=== PATIENT | female | born 1935 | race Caucasian/White ===

== ENCOUNTER → 2017-01-12 | Outpatient (CLI) | payer BC ==
[~2017-01-12] MED LIST: ALPR-411 PO; AMLO-110 PO; ATOR-22 PO; AZPOPS OPB; CLTP PO; CRG40 PO; DYZ PO; FSM10 PO; GLC500 PO; LISI-461 PO; MELO15TA3 PO; MULT-506 PO; NRN600 PO
--- NOTE | 2017-01-13 13:56 | MAMMOGRAPHY REPORT ---
UNILATERAL RIGHT DIGITAL SCREENING MAMMOGRAM TOMOSYNTHESIS WITH CAD: 01/12/2017 CLINICAL HISTORY: Asymptomatic. Personal history of breast cancer. TECHNIQUE: Right breast tomosynthesis in addition to standard 2D mammography was performed. Current selam hylton was also evaluated with a Computer Aided Detection (CAD) system. COMPARISON: Comparison is made to exams dated: 12/19/2015 mammogram, 12/12/2014 mammogram, 11/30/2013 m ammogram, 11/28/2012 mammogram, 11/23/2011 mammogram, and 11/20/2010 mammogram - [facility] er. BREAST COMPOSITION: The tissue of the right breast is almost entirely fatty. FINDINGS: There is possible architectural distortion in the posterior superior right breast, project ing over the pectoralis muscle on the MLO view (tomosynthesis slice 15/56). This is not definitely i dentified on the CC view. Although it could represent overlapping fibrolinear markings, additional s pot compression tomosynthesis views and possibly ultrasound are recommended. There are 9 appearing coarse calcifications scattered in the right breast. No other suspicious mass, architectural distortion or cluster of microcalcifications is seen. IMPRESSION: ACR BI-RADS CATEGORY 0: INCOMPLETE EVALUATION: NEED ADDITIONAL IMAGING EVALUATION The possible architectural distortion in the superior, posterior right breast on the MLO view needs a dditional evaluation. The patient will be called to schedule an appointment. Approximately 10% of breast cancers are not detected with mammography. A negative mammographic report should not delay biopsy if a clinically suggestive mass is present. Mariama Damon M.D. ay/:01/12/2017 15:38:55 On Site Coordinator: Isabella BOSE(Irvin)(Leana)([id number]), [facility] letter sent: Addl Imaging 0 BI-RADS Code: ACR BI-RADS Category 0: Incomplete Evaluation: Need Additional Imaging Evaluation
== END | disposition home or self-care (01) ==
LOC: C.MAMM 14:13
PROVIDERS: ATTEND Nurse Practitioner Family
DX: Z12.31 Encounter for screening mammogram for malignant neoplasm of breast (principal); Z85.3 Personal history of malignant neoplasm of breast

== ENCOUNTER → 2017-02-07 | Outpatient (CLI) | payer BC ==
--- NOTE | 2017-02-07 13:09 | MAMMOGRAPHY REPORT ---
UNILATERAL RIGHT DIGITAL DIAGNOSTIC MAMMOGRAM TOMOSYNTHESIS: 02/07/2017 CLINICAL HISTORY: 81-year-old woman with a personal history of left breast cancer status post mastect filippo called back from screening mammography for possible architectural distortion in the superior post erior right breast, only seen on the MLO view. TECHNIQUE: 2 spot compression MLO 2-D and tomosynthesis views of the right breast were obtained. COMPARISON: Comparison is made to exams dated: 01/12/2017 mammogram, 12/19/2015 mammogram, 12/12/2014 m ammogram, 11/30/2013 mammogram, 11/28/2012 mammogram, and 11/23/2011 mammogram - [facility] ter. BREAST COMPOSITION: The tissue of the right breast is almost entirely fatty. FINDINGS: There is complete effacement of the possible architectural distortion in the superior poste rior right breast on both spot compression MLO views and corresponding tomosynthesis images. There i s no evidence of a suspicious cluster of microcalcifications, obvious mass or developing asymmetry. The possible distortion most likely represented normal overlapping fibrolinear markings and is consid ered benign given the complete effacement. IMPRESSION: ACR BI-RADS CATEGORY 2: BENIGN There is complete effacement of the questionable architectural distortion in the superior posterior r ight breast with supplemental mammographic views and tomosynthesis images. There is no mammographic evidence of malignancy in the right breast. Return to annual mammogram screening schedule is recommen ded. The patient has been verbally notified of the results. Approximately 10% of breast cancers are not detected with mammography. A negative mammographic report should not delay biopsy if a clinically suggestive mass is present. Mariama Damon M.D. ay/:02/07/2017 11:08:21 Door Serviceman: Charmaine BOSE(Irvin)(Leana), [facility] letter sent: Normal 1/2 BI-RADS Code: ACR BI-RADS Category 2: Benign
== END | disposition home or self-care (01) ==
LOC: C.MAMM 10:28
PROVIDERS: ATTEND Nurse Practitioner Family
DX: R92.2 Inconclusive mammogram (principal); Z85.3 Personal history of malignant neoplasm of breast; Z90.12 Acquired absence of left breast and nipple

== ENCOUNTER → 2017-05-25 | Day surgery (SDC) | payer BC ==
[2017-05-02 12:48] VITALS: Ht 152.4 cm; Wt 59.1 kg
[~2017-05-25] VITALS: Ht 152.4 cm; Wt 59.1 kg
[~2017-05-25] MED LIST changes: -ALPR-411 PO; +ALPR0.5T PO; -AMLO-110 PO; +AMLO5TAB3 PO; -ATOR-22 PO; -AZPOPS OPB; -CLTP PO; -CRG40 PO; +CYAN100020 PO; -DYZ PO; -FSM10 PO; +GABA600T PO; -GLC500 PO; +LIDOCAINE HCL 1% MPF 5 ML VIAL ONE; -LISI-461 PO; +LISI40TA PO; -MELO15TA3 PO; +METO25TA3 PO; -MULT-506 PO; -NRN600 PO; +SITA25TA PO; +SODIUM CHLORIDE 0.9% INJ 10 ML VIAL ONE; +TRAM-10 PO; +TYLOTC500 PO
--- NOTE | 2017-05-25 13:37 | History & Physical Bridge - SC ---
H&P Re-Evaluation Bridge Note: I have examined the patient, reviewed the History & Physical and in the interval since the performance of the History & Physical I have noted the following changes of clinical significance: No changes noted
[2017-05-25 14:02] VITALS: TEMP 37.1
--- NOTE | 2017-05-25 14:06 | Discharge Instructions ---
Discharge Instructions Date of Service May 25, 2017. Visit Reason for Visit: Lumbar Radiculopathy Discharge Discharge Diagnosis / Problem: right leg pain Discharge Goals Goal(s): Decrease discomfort, Improve function Activity Recommendations Activity Limitations: resume your previous activity Anesthesia . Post Anesthesia Instructions: If you have had General Anesthesia or IV Sedation: * Do not drive today. * Resume driving when surgeon permits. * Do not make important decisions or sign legal documents today. * Call surgeon for: 1. Temperature elevations greater than 101 degrees F. 2. Uncontrollable pain. 3. Excessive bleeding. 4. Persistent nausea and vomiting. 5. Medication intolerance (nausea, vomiting or rash). * For nausea and vomiting use only clear liquids such as: tea, soda, bouillon until nausea subsides, then gradually increase diet as tolerated. * If you have any concerns or questions, call your surgeon's office. If physician is unavailable and it is an emergency, call 911 or go to the nearest emergency room. . Diet Recommendations Recommended Home Diet: resume previous diet Procedures Procedures Performed: Caudal Epidural Steroid Injection Pending Studies Studies pending at discharge: no Medical Emergencies . Who to Call and When: Medical Emergencies: If at any time you feel your situation is an emergency, please call 911 immediately. . Non-Emergent Contact Non-Emergency issues call your: Specialist . . "Provider Documentation" section prepared by Donavan Clark. .
[2017-05-25 14:16] VITALS: BP 157/84; PULSE 72; O2SAT 96
--- NOTE | 2017-05-25 14:18 | OPERATIVE REPORT ---
DATE OF OPERATION: 05/25/2017 PREOPERATIVE DIAGNOSIS: Post-laminectomy syndrome with persistent right L5 radiculopathy. POSTOPERATIVE DIAGNOSIS: Same. PROCEDURE: Caudal epidural steroid injection under fluoroscopic guidance. INDICATIONS: The patient is an 81-year-old white female who has pain that at times is debilitating following a right L5 dermatomal distribution. She has had laminectomy previously and still continues to have pain, that has not responded to conservative measures, including gabapentin trials. She presents today for lumbar epidural steroid injection via a caudal approach given her prior laminectomy to provide her with relief of her ongoing radiculopathy. PHYSICAL EXAMINATION: Pleasant female seated comfortably. She has a well-healed central incision, and she has sciatic sensitivity. No focal weakness. Negative seated straight leg raises. CONSENT: Verbal and written consent was obtained from patient. Risks and benefits were reviewed. Risks include but are not limited to epidural abscess, epidural hematoma, dural puncture. The patient wishes to proceed. DESCRIPTION OF PROCEDURE: The patient was taken back to the special procedures room of the [facility] where she was maintained in prone position. Backside was cleansed with Betadine x3 and dry sterile dressing was applied. Fluoroscope was used to identify the sacral hiatus and the overlying skin was anesthetized with 4 mL of lidocaine 1%. A 25 gauge 3.5 inch spinal needle was then used in a lateral view to enter the canal. It was advanced in the canal under lateral fashion and then after negative aspiration was injected with 40 mg of Depo-Medrol and 4 mL of preservative free sodium chloride. Injection was well tolerated. DISPOSITION: 1. The patient is taken out into the discharge recovery area where she will be discharged home once discharge criteria have been met. 2. Follow up in the [facility] office in 4 weeks' time. I attest to the content of the Intraoperative Record and any orders documented therein. Any exception s are noted below.
== END | disposition home or self-care (01) ==
LOC: X.SURG 12:47
PROVIDERS: ATTEND Physical Medicine & Rehabilitation
DX: M54.16 Radiculopathy, lumbar region (principal); M96.1 Postlaminectomy syndrome, not elsewhere classified; E11.319 Type 2 diabetes mellitus with unspecified diabetic retinopathy without macular edema; E53.8 Deficiency of other specified B group vitamins; N18.9 Chronic kidney disease, unspecified; K21.9 Gastro-esophageal reflux disease without esophagitis; I10 Essential (primary) hypertension; E78.5 Hyperlipidemia, unspecified; Z90.710 Acquired absence of both cervix and uterus; Z90.89 Acquired absence of other organs